=== PATIENT | male | born 1945 | race Caucasian/White ===

== ENCOUNTER 2023-01-17 22:16 | Observation (INO) | payer BC, OTHER ==
[2023-01-18 00:58] LABS: BASO % 1.1 % (0-2.0); EOS % 3.1 % (0-4.5); HEMATOCRIT 43.3 % (35.4-49); HEMOGLOBIN 14.6 GM/dL (11.7-16.9); LYMPH % 23.6 % (8-40); MCH 30.4 pg (25.7-33.7); MCHC 33.7 g/dl (32.0-35.9); MEAN CELL VOLUME 90.2 fl (80-96); MONO % 8.5 % (3.8-10.2); NEUT % 63.7 % (42.8-82.8); PLATELET COUNT 88 10^3/uL (134-434); WHITE BLOOD COUNT 5.5 K/mm3 (4.0-10.0)
[2023-01-18 01:06] LABS: INR 1.18 (0.83-1.09); PROTHROMBIN TIME (PATIENT) 13.7 SEC (9.7-13.0)
[2023-01-18 01:08] LABS: ACTIVATED PTT 27.8 SECONDS (25.2-36.5)
[2023-01-18 01:15] LABS: CALCIUM 9.4 mg/dL (8.5-10.1)
[2023-01-18 01:16] LABS: ALBUMIN 3.9 g/dl (3.4-5.0); BLOOD UREA NITROGEN 23.2 mg/dL (7-18)
[2023-01-18 01:21] LABS: BILIRUBIN,TOTAL 0.6 mg/dL (0.2-1)
[2023-01-18] MEDS ORDERED: PANTOPRAZOLE SODIUM 40 MG VIAL IVPUSH SCH (10:00)
[2023-01-18] MEDS: LACTATED RINGERS SOLUTION 1,000 ML IV SCH (10:38)
[2023-01-18 11:01] LABS: BASO % 1.1 % (0-2.0); EOS % 3.2 % (0-4.5); HEMATOCRIT 41.7 % (35.4-49); HEMOGLOBIN 13.9 GM/dL (11.7-16.9); LYMPH % 26.4 % (8-40); MCH 30.6 pg (25.7-33.7); MCHC 33.2 g/dl (32.0-35.9); MEAN PLT VOLUME 12.1 fl (7.5-11.1); MONO % 7.9 % (3.8-10.2); NEUT % 61.4 % (42.8-82.8); PLATELET COUNT 75 10^3/uL (134-434); RBC 4.53 M/mm3 (4.00-5.60); RDW 12.6 % (11.9-15.9); WHITE BLOOD COUNT 4.5 K/mm3 (4.0-10.0)
[2023-01-18 11:28] LABS: POTASSIUM 3.8 mmol/L (3.5-5.1)
[2023-01-18 11:31] LABS: BLOOD UREA NITROGEN 20.3 mg/dL (7-18); CALCIUM 8.9 mg/dL (8.5-10.1)
[2023-01-18 11:32] LABS: ALBUMIN 3.6 g/dl (3.4-5.0)
[2023-01-18 11:34] LABS: BILIRUBIN,DIRECT 0.2 mg/dL (0.0-0.2)
[2023-01-18 11:35] LABS: CREATININE 0.9 mg/dL (0.55-1.3)
[2023-01-18 11:36] LABS: TOT PROT 6.1 g/dl (6.4-8.2)
[2023-01-18] MEDS ORDERED: BISACODYL 5 MG TABLET.DR (FP) PO ONE ×2 (16:00→17:15)
[2023-01-18] MEDS ORDERED: PEG 3350/NA SULF BICARB CL/KCL 4000 ML SOLN.RECON PO ONE (17:00)
[2023-01-18 19:57] VITALS: BMI 26.9
[2023-01-19] MEDS: LACTATED RINGERS SOLUTION 1,000 ML IV SCH ×2 (02:23→16:38)
[2023-01-19] MEDS ORDERED: PANTOPRAZOLE 40 MG TABLET PO SCH (10:00)
[2023-01-19 10:56] LABS: EOS % 3.6 % (0-4.5); HEMOGLOBIN 13.5 GM/dL (11.7-16.9); LYMPH % 26.8 % (8-40); MCH 30.3 pg (25.7-33.7); MCHC 32.9 g/dl (32.0-35.9); MEAN CELL VOLUME 92.1 fl (80-96); MEAN PLT VOLUME 11.9 fl (7.5-11.1); NEUT % 58.6 % (42.8-82.8); PLATELET COUNT 77 10^3/uL (134-434); RBC 4.45 M/mm3 (4.00-5.60); RDW 12.7 % (11.9-15.9); WHITE BLOOD COUNT 4.1 K/mm3 (4.0-10.0)
[2023-01-19 11:15] LABS: POTASSIUM 3.8 mmol/L (3.5-5.1)
[2023-01-19 11:38] LABS: CALCIUM 9.2 mg/dL (8.5-10.1)
[2023-01-19 11:39] LABS: ALBUMIN 3.5 g/dl (3.4-5.0); BLOOD UREA NITROGEN 13.6 mg/dL (7-18)
[2023-01-19 11:43] LABS: BILIRUBIN,TOTAL 1.4 mg/dL (0.2-1)
[2023-01-19 14:04] VITALS: RESP 18
[2023-01-19] MEDS: SODIUM CHLORIDE 0.45% 1,000 ML IV SCH (16:36)
[2023-01-19] MEDS: POLYETHYLENE GLYCOL (HEALTHYLAX) 3350 17 GM PACKET PO SCH (21:34)
[2023-01-20] MEDS: SODIUM CHLORIDE 0.45% 1,000 ML IV SCH (04:49)
[2023-01-20 09:33] LABS: BASO % 1.2 % (0-2.0); EOS % 3.1 % (0-4.5); HEMOGLOBIN 13.3 GM/dL (11.7-16.9); LYMPH % 28.7 % (8-40); MCH 31.5 pg (25.7-33.7); MCHC 34.1 g/dl (32.0-35.9); MEAN CELL VOLUME 92.3 fl (80-96); MEAN PLT VOLUME 12.3 fl (7.5-11.1); MONO % 8.4 % (3.8-10.2); NEUT % 58.6 % (42.8-82.8); PLATELET COUNT 67 10^3/uL (134-434); RBC 4.23 M/mm3 (4.00-5.60); RDW 12.7 % (11.9-15.9)
[2023-01-20 10:24] LABS: ALBUMIN 3.4 g/dl (3.4-5.0); CALCIUM 8.9 mg/dL (8.5-10.1)
[2023-01-20] MEDS: POLYETHYLENE GLYCOL (HEALTHYLAX) 3350 17 GM PACKET PO SCH (10:24)
[2023-01-20 10:27] LABS: CREATININE 1.2 mg/dL (0.55-1.3)
[2023-01-20 10:29] LABS: BILIRUBIN,TOTAL 1.1 mg/dL (0.2-1); TOT PROT 5.8 g/dl (6.4-8.2)
[2023-01-20 15:56] VITALS: BP 124/60; PULSE 65; TEMP 97.3
== END 2023-01-20 17:06 | disposition home or self-care (01) ==
LOC: JER 22:16 → JASUSAT 01-18 05:50 → JERBED 01-18 05:50 → J5S 01-18 15:09
PROVIDERS: ADMIT Internal Medicine; ATTEND Internal Medicine
PROC: 3E0337Z Introduction of Electrolytic and Water Balance Substance into Peripheral Vein, Percutaneous Approach (ICD-10-PCS; principal; 2023-01-18 13:45)
DX: K91.840 Postprocedural hemorrhage of a digestive system organ or structure following a digestive system procedure (principal); K21.9 Gastro-esophageal reflux disease without esophagitis; K59.00 Constipation, unspecified; Z87.891 Personal history of nicotine dependence; E78.5 Hyperlipidemia, unspecified; M10.9 Gout, unspecified
CPT/HCPCS: 36415; 74174-TC; 76705-TC; 80048; 80053; 80076; 82272; 82977; 85025; 85610; 85730; 86850; 86900; 86901; 88305-TC; 96360; 99285-25; G0378